=== PATIENT | male | born 1950 | race Caucasian/White ===

== ENCOUNTER → 2017-01-25 | Outpatient (CLI) | payer MEDICARE, BC | LOC: RAD 09:53 | DX: Z87.891 Personal history of nicotine dependence (principal); Z13.6 Encounter for screening for cardiovascular disorders ==

== ENCOUNTER → 2017-04-05 | Outpatient (CLI) | payer MEDICARE, BC | LOC: CARDLAB 03-29 08:24 → CARDREHAB 10:50 | DX: I25.10 Atherosclerotic heart disease of native coronary artery without angina pectoris (principal); E78.5 Hyperlipidemia, unspecified; I10 Essential (primary) hypertension; Z82.49 Family history of ischemic heart disease and other diseases of the circulatory system | CPT/HCPCS: A9500 ==

== ENCOUNTER → 2018-07-15 | Outpatient (CLI) | payer MEDICARE, BC | LOC: RAD 13:42 | DX: Z13.820 Encounter for screening for osteoporosis (principal); M81.0 Age-related osteoporosis without current pathological fracture; Z87.81 Personal history of (healed) traumatic fracture ==

== ENCOUNTER → 2018-07-23 | Outpatient (CLI) | payer MEDICARE, BC | LOC: VAS 12:55 → RAD 13:00 → VAS 13:00 | DX: I08.1 Rheumatic disorders of both mitral and tricuspid valves (principal); R06.00 Dyspnea, unspecified ==

== ENCOUNTER 2018-11-22 12:34 | Emergency (ER) | payer MEDICARE, BC ==
[~2018-11-22] VITALS: Ht 172.7 cm; Wt 75.0 kg
[2018-11-22] MEDS ORDERED: ANORO ELLIPTA1 POW IH ×2 (13:01→13:14)
[2018-11-22] MEDS ORDERED: ATENOLOL50 MG PO ×2 (13:03→13:14)
[2018-11-22] MEDS ORDERED: PROAIR HFA0.09 MG/AC IH ×2 (13:03→13:14)
[2018-11-22] MEDS ORDERED: PRAVASTATIN SOD20 MG PO ×2 (13:03→13:14)
[2018-11-22 13:13] VITALS: BP 143/87
== END 2018-11-22 13:23 | disposition home or self-care (01) ==
LOC: ED 12:34
DX: F17.210 Nicotine dependence, cigarettes, uncomplicated (principal); I10 Essential (primary) hypertension; J44.9 Chronic obstructive pulmonary disease, unspecified; Z76.0 Encounter for issue of repeat prescription

== ENCOUNTER → 2019-06-20 | Outpatient (CLI) | payer MEDICARE, BC ==
[~2019-06-20] MED LIST: ANORO ELLIPTA1 POW IH; ATENOLOL50 MG PO; PRAVASTATIN SOD20 MG PO; PROAIR HFA0.09 MG/AC IH
== END ==
LOC: AMSURD 19:08
DX: R07.89 Other chest pain (principal)

== ENCOUNTER → 2020-03-28 | Outpatient (CLI) | payer MEDICARE, BC | LOC: LAB 15:14 | PROVIDERS: Student in an Organized Health Care Education/Training Program | DX: K21.9 Gastro-esophageal reflux disease without esophagitis (principal) ==

== ENCOUNTER → 2020-03-30 | Outpatient (CLI) | payer MEDICARE, BC | LOC: RAD 09:56 | DX: J43.9 Emphysema, unspecified (principal); M50.30 Other cervical disc degeneration, unspecified cervical region | CPT/HCPCS: Q9967 ==